=== PATIENT | male | born 1975 | race African-American/Black ===

== ENCOUNTER 2023-08-11 21:59 | Outpatient (CLI) | payer OTHER, SELFPAY | END 2023-08-11 22:00 | disposition home or self-care (01) | PROVIDERS: Visit Provider Family Medicine | DX: S09.93XA Unspecified injury of face, initial encounter (principal); Y04.0XXA Assault by unarmed brawl or fight, initial encounter; Y92.9 Unspecified place or not applicable | CPT/HCPCS: A0998 ==

== ENCOUNTER 2025-04-04 19:25 | Outpatient (CLI) | payer OTHER, SELFPAY | END 2025-04-04 19:26 | disposition home or self-care (01) | LOC: AMB 04-05 16:20 | PROVIDERS: Visit Provider Family Medicine | DX: S09.93XA Unspecified injury of face, initial encounter (principal); Y04.1XXA Assault by human bite, initial encounter; Y92.9 Unspecified place or not applicable | CPT/HCPCS: A0998 ==